=== PATIENT | male | born 1995 | race African-American/Black ===

== ENCOUNTER 2017-08-07 12:17 | Inpatient (IN) | payer OTHER ==
[2017-08-07 13:56] VITALS: BMI 33.0
[2017-08-07] MEDS ORDERED: P-EPHED 60MG/TRIPROLIDI 2.5MG TABLET PO PRN (16:53)
[2017-08-07] MEDS ORDERED: guaiFENesin/D-METHORPHAN HB 10 ML UNIT-DOSE CUPS PO PRN (16:53)
[2017-08-07] MEDS ORDERED: MAGNESIUM CITRATE 300 ML BOTTLE PO PRN (16:53)
[2017-08-07] MEDS ORDERED: IBUPROFEN 400 MG TABLET (FP) PO PRN (16:53)
[2017-08-07] MEDS ORDERED: MAGNESIUM HYDROX 2400MG/30ML ORAL SUSPENSION 30 ML CUP PO PRN (16:53)
[2017-08-07] MEDS ORDERED: NICOTINE POLACRILEX 4 MG GUM BC PRN (16:53)
[2017-08-07] MEDS ORDERED: LOPERAMIDE HCL 2 MG CAPSULE PO PRN (16:53)
[2017-08-07] MEDS ORDERED: MENTHOL/PHENOL 1 EACH UD MM PRN (16:53)
--- NOTE | 2017-08-07 16:53 | HP ---
Admission [facility] Chief Complaint: rehab for marijuana use court mandated Allergies/Adverse Reactions: Allergies Allergy/AdvReac Type Severity Reaction Status Date / Time shellfish derived Allergy Intermediate Swelling Verified 08/07/17 15:47 History of Present Illness: 21 yo m with h/o marijuana use court mandated, no previous teatment episodes. suicide attempt in past 2-15 no si at thsi time, dental caries unrelieved by naprosyn, low back pain Exam Limitations: No Limitations - Ebola screening Have you traveled outside of the country in the last 21 days: No Have you had contact with anyone from an Ebola affected area: No Have you been sick,other than usual withdrawal symptoms: No Do you have a fever: No - Review of Systems Constitutional: No Symptoms Reported EENT: reports: No Symptoms Reported Respiratory: reports: No Symptoms reported Cardiac: reports: No Symptoms Reported GI: reports: No Symptoms Reported : reports: No Symptoms Reported Musculoskeletal: reports: No Symptoms Reported Integumentary: reports: No Symptoms Reported Neuro: reports: No Symptoms reported Endocrine: reports: No Symptoms Reported Hematology: reports: No Symptoms Reported Psychiatric: reports: Judgement Intact, Mood/Affect Appropiate, Orientated x3, Anxious, Depressed Other Systems: Reviewed and Negative Patient History - Patient Medical History Hx Anemia: No Hx Asthma: No Hx Chronic Obstructive Pulmonary Disease (COPD): No Hx Cancer: No Hx Cardiac Disorders: No Hx Congestive Heart Failure: No Hx Hypertension: No Hx Hypercholesterolemia: No Hx Pacemaker: No HX Cerebrovascular Accident: No Hx Seizures: No Hx Dementia: No Hx Diabetes: No Hx Gastrointestinal Disorders: No Hx Liver Disease: No Hx Genitourinary Disorders: No Hx Sexually Transmitted Disorders: No Hx Renal Disease (ESRD): No Hx Thyroid Disease: No Hx Human Immunodeficiency Virus (HIV): No Hx Hepatitis C: No Hx Depression: Yes Hx Suicide Attempt: Yes (2014, no si, cut arms) Hx Bipolar Disorder: No Hx Schizophrenia: No - Patient Surgical History Past Surgical History: No Anesthesia Reaction: No - PPD History Previous Implant?: Yes Documented Results: Negative w/o proof Implanted On Prior [facility] Admission?: No PPD to be Administered?: Yes - Reproductive History Patient is a Female of Child Bearing Age (11 -55 yrs old): No Patient : No - Smoking Cessation Smoking history: Current every day smoker Have you smoked in the past 12 months: Yes Aproximately how many cigarettes per day: 20 Hx Chewing Tobacco Use: No Initiated information on smoking cessation: Yes 'Breaking Loose' booklet given: 08/07/17 - Substance & Tx. History Hx Alcohol Use: Yes (social only ) Hx Substance Use: Yes Substance Use Type: Marijuana Hx Substance Use Treatment: No - Substances Abused Marijuana/Hashish Route: Smoking Frequency: Daily Amount used: $100 Age of first use: 15 Date of Last Use: 08/06/17 Family Disease History - Family Disease History Family Disease History: Other: Grandparent (HTN) Admission Physical Exam [facility] - Vital Signs Vital Signs: Vital Signs - 24 hr 08/07/17 13:52 Temperature 97.8 F Pulse Rate 83 Respiratory 20 Rate Blood Pressure 147/69 - Physical General Appearance: Yes: Within Normal Limits, No Apparent Distress, Nourished, Appropriately Dressed, Obese HEENTM: Yes: Within Normal Limits, Hearing grossly Normal, Normal ENT Inspection , Normocephalic, Normal Voice, ANN, Other (dental caries) Respiratory: Yes: Within Normal Limits, Chest Non-Tender, Lungs Clear, Normal Breath Sounds, No Respiratory Distress, No Accessory Muscle Use Neck: Yes: Within Normal Limits, No masses,lesions,Nodules, Supple, Trachea in good position Breast: Yes: Breast Exam Deferred Cardiology: Yes: Within Normal Limits, Regular Rhythm, Regular Rate, S1, S2 Abdominal: Yes: Normal Bowel Sounds, Non Tender, Flat, Soft, Protuberent, Distended Genitourinary: Yes: Within Normal Limits Back: Yes: Within Normal Limits, Normal Inspection Musculoskeletal: Yes: Within Normal Limits, full range of Motion, Gait Steady, Pelvis Stable Extremities: Yes: Within Normal Limits, Normal Capillary Refill, Normal Inspection, Normal Range of Motion, Non-Tender Neurological: Yes: Within Normal Limits, garment 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 intact, Fully Oriented, Alert, Motor Strength 5/5, Normal Response, Depressed Affect Integumentary: Yes: Within Normal Limits, Normal Color, Dry, Warm Lymphatic: Yes: Within Normal Limits - Diagnostic (1) Cannabis dependence Current Visit: Yes Status: Acute (2) Dental caries Current Visit: Yes Status: Acute (3) Depression Current Visit: Yes Status: Acute (4) Suicide attempt Current Visit: Yes Status: Acute Cleared for Admission [facility] - Detox or Rehab Claeared for Rehab Admission: Yes [facility] Breath Alcohol Content Breath Alcohol Content: 0 Urine Drug Screen - Results Drug Screen Negative: No Urine Drug Screen Results: THC-Marijuana Inpatient Rehab Admission - Initial Determination Are CD services needed?: Yes Free of communicable disease: Yes Not in need of hospitalization: Yes - Rehab Admission Criteria Lacks judgement: Yes Patient is meeting Inpatient Rehab admission criteria:: Yes
[2017-08-07] MEDS: AMOX TR/POT CLAV 500MG/125MG TABLETS (FP) PO SCH (20:38)
[2017-08-07] MEDS: NICOTINE 21 MG/24 HOURS TOPICAL PATCH TD SCH (20:39)
[2017-08-07] MEDS: PANTOPRAZOLE 40 MG TABLET (FP) PO SCH (20:39)
[2017-08-07] MEDS: THIAMINE HCL 100 MG TABLET (FP) PO SCH (22:02)
[2017-08-07] MEDS: NAPROXEN 500 MG TABLET (FP) PO SCH (22:02)
[2017-08-07 23:35] LABS: URINE APPEARANCE CLEAR; URINE BILIRUBIN NEGATIVE (NEGATIVE); URINE BLOOD NEGATIVE (NEGATIVE); URINE COLOR LTYELLOW; URINE GLUCOSE (UA) 1+ (NEGATIVE); URINE KETONE NEGATIVE (NEGATIVE); URINE LEUK ESTERASE NEGATIVE (NEGATIVE); URINE NITRITE NEGATIVE (NEGATIVE); URINE PROTEIN NEGATIVE (NEGATIVE)
[2017-08-08] MEDS: AMOX TR/POT CLAV 500MG/125MG TABLETS (FP) PO SCH ×3 (07:44→18:07)
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
[2017-08-08] MEDS: PANTOPRAZOLE 40 MG TABLET (FP) PO SCH (10:22)
[2017-08-08] MEDS: NICOTINE 21 MG/24 HOURS TOPICAL PATCH TD SCH (10:22)
[2017-08-08] MEDS: PRENATAL VITAMINS W/ FOLIC ACID TABLET (FP) PO SCH (10:22)
[2017-08-08] MEDS: NAPROXEN 500 MG TABLET (FP) PO SCH ×2 (10:22→21:53)
[2017-08-08 10:46] LABS: HEMATOCRIT 45.8 % (35.4-49); HEMOGLOBIN 14.2 GM/dL (11.7-16.9); MCH 21.9 pg (25.7-33.7); MCHC 31.1 g/dl (32.0-35.9); MEAN CELL VOLUME 70.6 fl (80-96); MEAN PLT VOLUME 8.8 fl (7.5-11.1); PLATELET COUNT 228 K/MM3 (134-434); RBC 6.48 M/mm3 (4.00-5.60); RDW 14.5 % (11.9-15.9); WHITE BLOOD COUNT 6.4 K/mm3 (4.0-10.0)
[2017-08-08 10:53] LABS: ALBUMIN 4.1 g/dl (3.4-5.0); BLOOD UREA NITROGEN 10 mg/dL (7-18); CHLORIDE 105 mmol/L (98-107); SGOT/AST 17 U/L (15-37); SGPT/ALT 31 U/L (12-78); SODIUM 142 mmol/L (136-145)
[2017-08-08 10:56] LABS: ALK PHOS 83 U/L (45-117); ANION GAP 9 (8-16); BILIRUBIN,TOTAL 0.6 mg/dL (0.2-1.0); CALCIUM 9.5 mg/dL (8.5-10.1); CO2 28 mmol/L (21-32); CREATININE 0.8 mg/dL (0.7-1.3); GLUCOSE,RANDOM 84 mg/dL (74-106); TOT PROT 7.2 g/dl (6.4-8.2)
[2017-08-08] MEDS: QUEtiapine FUMARATE 50 MG TABLET PO SCH (12:19)
--- NOTE | 2017-08-08 12:35 | EKG ---
Test Reason : Blood Pressure : / mmHG Vent. Rate : 052 BPM Atrial Rate : 052 BPM P-R Int : 134 ms QRS Dur : 098 ms QT Int : 402 ms P-R-T Axes : 054 042 030 degrees QTc Int : 373 ms SINUS BRADYCARDIA WITH SINUS ARRHYTHMIA OTHERWISE NORMAL ECG WHEN COMPARED WITH ECG OF 07-AUG-2017 22:36, QT HAS SHORTENED Confirmed by SURINDER VENEGAS MD ([id number]) on 08/08/2017 12:35:16 PM Referred By: Confirmed By:SURINDER VENEGAS MD
--- NOTE | 2017-08-08 12:36 | EKG ---
Test Reason : Blood Pressure : / mmHG Vent. Rate : 067 BPM Atrial Rate : 067 BPM P-R Int : 136 ms QRS Dur : 100 ms QT Int : 424 ms P-R-T Axes : 053 049 026 degrees QTc Int : 448 ms NORMAL SINUS RHYTHM WITH SINUS ARRHYTHMIA POSSIBLE LEFT ATRIAL ENLARGEMENT LEFT VENTRICULAR HYPERTROPHY ABNORMAL ECG NO PREVIOUS ECGS AVAILABLE Confirmed by SURINDER VENEGAS MD ([id number]) on 08/08/2017 12:35:41 PM Referred By: Confirmed By:SURINDER VENEGAS MD
[2017-08-08 14:12] LABS: SICKLE CELL SCREEN NEGATIVE (NEGATIVE)
[2017-08-08] MEDS: TOLNAFTATE 1% CREAM 15 GM TUBE TP SCH ×2 (14:57→21:54)
[2017-08-08] MEDS: THIAMINE HCL 100 MG TABLET (FP) PO SCH (21:53)
[2017-08-08] MEDS: QUEtiapine FUMARATE 100 MG TABLET (FP) PO SCH (21:53)
[2017-08-09] MEDS: MAG HYDROX/AL HYDROX/SIMETH 30 ML UNIT-DOSE CUP PO PRN (06:28)
[2017-08-09] MEDS: AMOX TR/POT CLAV 500MG/125MG TABLETS (FP) PO SCH ×3 (08:12→17:05)
[2017-08-09] MEDS: NAPROXEN 500 MG TABLET (FP) PO SCH ×2 (09:16→21:22)
[2017-08-09] MEDS: QUEtiapine FUMARATE 50 MG TABLET PO SCH (09:16)
[2017-08-09] MEDS: PRENATAL VITAMINS W/ FOLIC ACID TABLET (FP) PO SCH (09:16)
[2017-08-09] MEDS: PANTOPRAZOLE 40 MG TABLET (FP) PO SCH (09:16)
[2017-08-09] MEDS: NICOTINE 21 MG/24 HOURS TOPICAL PATCH TD SCH (09:19)
[2017-08-09] MEDS: TOLNAFTATE 1% CREAM 15 GM TUBE TP SCH ×2 (09:20→21:21)
[2017-08-09] MEDS: QUEtiapine FUMARATE 100 MG TABLET (FP) PO SCH (21:22)
[2017-08-09] MEDS: THIAMINE HCL 100 MG TABLET (FP) PO SCH (21:22)
[2017-08-10] MEDS: AMOX TR/POT CLAV 500MG/125MG TABLETS (FP) PO SCH ×3 (08:08→17:01)
[2017-08-10] MEDS: NAPROXEN 500 MG TABLET (FP) PO SCH ×2 (09:38→21:48)
[2017-08-10] MEDS: NICOTINE 21 MG/24 HOURS TOPICAL PATCH TD SCH (09:38)
[2017-08-10] MEDS: PANTOPRAZOLE 40 MG TABLET (FP) PO SCH (09:38)
[2017-08-10] MEDS: QUEtiapine FUMARATE 50 MG TABLET PO SCH (09:38)
[2017-08-10] MEDS: PRENATAL VITAMINS W/ FOLIC ACID TABLET (FP) PO SCH (09:38)
[2017-08-10] MEDS: TOLNAFTATE 1% CREAM 15 GM TUBE TP SCH ×2 (09:39→21:47)
[2017-08-10] MEDS: THIAMINE HCL 100 MG TABLET (FP) PO SCH (21:47)
[2017-08-10] MEDS: QUEtiapine FUMARATE 100 MG TABLET (FP) PO SCH (21:47)
[2017-08-11] MEDS: AMOX TR/POT CLAV 500MG/125MG TABLETS (FP) PO SCH ×3 (08:25→16:56)
[2017-08-11] MEDS: PRENATAL VITAMINS W/ FOLIC ACID TABLET (FP) PO SCH (09:33)
[2017-08-11] MEDS: QUEtiapine FUMARATE 50 MG TABLET PO SCH (09:33)
[2017-08-11] MEDS: PANTOPRAZOLE 40 MG TABLET (FP) PO SCH (09:33)
[2017-08-11] MEDS: NAPROXEN 500 MG TABLET (FP) PO SCH ×2 (09:33→21:20)
[2017-08-11] MEDS: NICOTINE 21 MG/24 HOURS TOPICAL PATCH TD SCH (09:34)
[2017-08-11] MEDS: TOLNAFTATE 1% CREAM 15 GM TUBE TP SCH ×2 (10:58→21:20)
[2017-08-11] MEDS: QUEtiapine FUMARATE 100 MG TABLET (FP) PO SCH (21:20)
[2017-08-11] MEDS: THIAMINE HCL 100 MG TABLET (FP) PO SCH (21:20)
[2017-08-12] MEDS: AMOX TR/POT CLAV 500MG/125MG TABLETS (FP) PO SCH ×4 (07:47→17:03)
[2017-08-12] MEDS: NAPROXEN 500 MG TABLET (FP) PO SCH ×2 (09:31→21:45)
[2017-08-12] MEDS: TOLNAFTATE 1% CREAM 15 GM TUBE TP SCH ×2 (09:31→21:44)
[2017-08-12] MEDS: PRENATAL VITAMINS W/ FOLIC ACID TABLET (FP) PO SCH (09:31)
[2017-08-12] MEDS: PANTOPRAZOLE 40 MG TABLET (FP) PO SCH (09:31)
[2017-08-12] MEDS: NICOTINE 21 MG/24 HOURS TOPICAL PATCH TD SCH (09:31)
[2017-08-12] MEDS: QUEtiapine FUMARATE 50 MG TABLET PO SCH (09:31)
[2017-08-12] MEDS: BACITRACIN 0.9 GM PACKET TP SCH (21:44)
[2017-08-12] MEDS: RANITIDINE HCL 150 MG TABLET (FP) PO SCH (21:45)
[2017-08-12] MEDS: QUEtiapine FUMARATE 100 MG TABLET (FP) PO SCH (21:45)
[2017-08-12] MEDS: THIAMINE HCL 100 MG TABLET (FP) PO SCH (21:45)
[2017-08-13] MEDS: AMOX TR/POT CLAV 500MG/125MG TABLETS (FP) PO SCH ×3 (08:05→18:16)
[2017-08-13] MEDS: NAPROXEN 500 MG TABLET (FP) PO SCH ×2 (09:36→21:15)
[2017-08-13] MEDS: BACITRACIN 0.9 GM PACKET TP SCH ×2 (09:36→21:16)
[2017-08-13] MEDS: NICOTINE 21 MG/24 HOURS TOPICAL PATCH TD SCH (09:36)
[2017-08-13] MEDS: QUEtiapine FUMARATE 50 MG TABLET PO SCH (09:36)
[2017-08-13] MEDS: TOLNAFTATE 1% CREAM 15 GM TUBE TP SCH ×2 (09:36→21:16)
[2017-08-13] MEDS: PRENATAL VITAMINS W/ FOLIC ACID TABLET (FP) PO SCH (09:36)
[2017-08-13] MEDS: RANITIDINE HCL 150 MG TABLET (FP) PO SCH ×2 (09:36→21:16)
[2017-08-13] MEDS: QUEtiapine FUMARATE 100 MG TABLET (FP) PO SCH (21:15)
[2017-08-13] MEDS: THIAMINE HCL 100 MG TABLET (FP) PO SCH (21:16)
[2017-08-14] MEDS: AMOX TR/POT CLAV 500MG/125MG TABLETS (FP) PO SCH ×3 (09:00→17:16)
[2017-08-14] MEDS: NAPROXEN 500 MG TABLET (FP) PO SCH ×2 (09:13→21:23)
[2017-08-14] MEDS: QUEtiapine FUMARATE 50 MG TABLET PO SCH (09:13)
[2017-08-14] MEDS: RANITIDINE HCL 150 MG TABLET (FP) PO SCH ×2 (09:13→21:23)
[2017-08-14] MEDS: PRENATAL VITAMINS W/ FOLIC ACID TABLET (FP) PO SCH (09:13)
[2017-08-14] MEDS: NICOTINE 21 MG/24 HOURS TOPICAL PATCH TD SCH (09:14)
[2017-08-14] MEDS: TOLNAFTATE 1% CREAM 15 GM TUBE TP SCH ×2 (09:14→21:23)
[2017-08-14] MEDS: BACITRACIN 0.9 GM PACKET TP SCH ×2 (09:14→21:23)
[2017-08-14] MEDS: QUEtiapine FUMARATE 100 MG TABLET (FP) PO SCH (21:23)
[2017-08-14] MEDS: THIAMINE HCL 100 MG TABLET (FP) PO SCH (21:25)
[2017-08-15] MEDS: AMOX TR/POT CLAV 500MG/125MG TABLETS (FP) PO SCH ×3 (08:15→17:37)
[2017-08-15] MEDS: NICOTINE 21 MG/24 HOURS TOPICAL PATCH TD SCH (09:43)
[2017-08-15] MEDS: TOLNAFTATE 1% CREAM 15 GM TUBE TP SCH ×2 (09:43→21:03)
[2017-08-15] MEDS: BACITRACIN 0.9 GM PACKET TP SCH ×2 (09:43→21:02)
[2017-08-15] MEDS: PRENATAL VITAMINS W/ FOLIC ACID TABLET (FP) PO SCH (09:43)
[2017-08-15] MEDS: RANITIDINE HCL 150 MG TABLET (FP) PO SCH ×2 (09:43→21:05)
[2017-08-15] MEDS: QUEtiapine FUMARATE 50 MG TABLET PO SCH (09:43)
[2017-08-15] MEDS: NAPROXEN 500 MG TABLET (FP) PO SCH ×2 (09:43→21:03)
--- NOTE | 2017-08-15 12:21 | PN ---
[facility] Progress Note Note: co tooth pain, discussed pain mngmnt options and that dds as outpt is best if completion desired
[2017-08-15] MEDS: LIDOCAINE 5% TOPICAL PATCH TP SCH (13:11)
[2017-08-15] MEDS: CYCLOBENZAPRINE HCL 5 MG TABLET PO SCH ×2 (13:11→21:02)
[2017-08-15] MEDS: LIDOCAINE PATCH REMOVAL MC SCH (21:02)
[2017-08-15] MEDS: QUEtiapine FUMARATE 100 MG TABLET (FP) PO SCH (21:03)
[2017-08-15] MEDS: THIAMINE HCL 100 MG TABLET (FP) PO SCH (21:04)
[2017-08-16] MEDS: CYCLOBENZAPRINE HCL 5 MG TABLET PO SCH ×3 (06:45→21:43)
[2017-08-16] MEDS: AMOX TR/POT CLAV 500MG/125MG TABLETS (FP) PO SCH ×3 (07:01→17:03)
[2017-08-16] MEDS: RANITIDINE HCL 150 MG TABLET (FP) PO SCH ×2 (09:59→21:43)
[2017-08-16] MEDS: TOLNAFTATE 1% CREAM 15 GM TUBE TP SCH ×2 (09:59→21:43)
[2017-08-16] MEDS: BACITRACIN 0.9 GM PACKET TP SCH ×2 (09:59→22:07)
[2017-08-16] MEDS: PRENATAL VITAMINS W/ FOLIC ACID TABLET (FP) PO SCH (09:59)
[2017-08-16] MEDS: QUEtiapine FUMARATE 50 MG TABLET PO SCH (09:59)
[2017-08-16] MEDS: NICOTINE 21 MG/24 HOURS TOPICAL PATCH TD SCH (09:59)
[2017-08-16] MEDS: NAPROXEN 500 MG TABLET (FP) PO SCH ×2 (09:59→21:43)
[2017-08-16] MEDS: LIDOCAINE 5% TOPICAL PATCH TP SCH (10:00)
[2017-08-16] MEDS ORDERED: PT OWN MED DRAWER 7, Y5N ONE (14:06)
[2017-08-16] MEDS: QUEtiapine FUMARATE 100 MG TABLET (FP) PO SCH (21:43)
[2017-08-16] MEDS: THIAMINE HCL 100 MG TABLET (FP) PO SCH (21:43)
[2017-08-16] MEDS: LIDOCAINE PATCH REMOVAL MC SCH (22:15)
[2017-08-17] MEDS: CYCLOBENZAPRINE HCL 5 MG TABLET PO SCH ×3 (06:31→21:38)
[2017-08-17] MEDS: AMOX TR/POT CLAV 500MG/125MG TABLETS (FP) PO SCH ×3 (07:02→18:18)
[2017-08-17] MEDS: PRENATAL VITAMINS W/ FOLIC ACID TABLET (FP) PO SCH (09:35)
[2017-08-17] MEDS: BACITRACIN 0.9 GM PACKET TP SCH ×2 (09:35→21:38)
[2017-08-17] MEDS: QUEtiapine FUMARATE 50 MG TABLET PO SCH (09:35)
[2017-08-17] MEDS: RANITIDINE HCL 150 MG TABLET (FP) PO SCH ×2 (09:35→22:31)
[2017-08-17] MEDS: LIDOCAINE 5% TOPICAL PATCH TP SCH (09:35)
[2017-08-17] MEDS: NAPROXEN 500 MG TABLET (FP) PO SCH ×2 (09:35→21:38)
[2017-08-17] MEDS: NICOTINE 21 MG/24 HOURS TOPICAL PATCH TD SCH (09:35)
[2017-08-17] MEDS: TOLNAFTATE 1% CREAM 15 GM TUBE TP SCH ×2 (09:36→21:38)
[2017-08-17] MEDS ORDERED: LIDOCAINE VISCOUS 2% ORAL/TOP 20 ML UNIT-DOSE CUP MM ONE (20:13)
[2017-08-17] MEDS: THIAMINE HCL 100 MG TABLET (FP) PO SCH (21:38)
[2017-08-17] MEDS: QUEtiapine FUMARATE 100 MG TABLET (FP) PO SCH (21:38)
[2017-08-17] MEDS: LIDOCAINE PATCH REMOVAL MC SCH (21:40)
[2017-08-18] MEDS: CYCLOBENZAPRINE HCL 5 MG TABLET PO SCH ×3 (06:38→21:49)
[2017-08-18] MEDS: AMOX TR/POT CLAV 500MG/125MG TABLETS (FP) PO SCH ×3 (07:00→17:31)
[2017-08-18] MEDS: NAPROXEN 500 MG TABLET (FP) PO SCH ×2 (09:26→21:49)
[2017-08-18] MEDS: LIDOCAINE 5% TOPICAL PATCH TP SCH (09:26)
[2017-08-18] MEDS: QUEtiapine FUMARATE 50 MG TABLET PO SCH (09:26)
[2017-08-18] MEDS: NICOTINE 21 MG/24 HOURS TOPICAL PATCH TD SCH (09:26)
[2017-08-18] MEDS: RANITIDINE HCL 150 MG TABLET (FP) PO SCH ×2 (09:26→21:49)
[2017-08-18] MEDS: PRENATAL VITAMINS W/ FOLIC ACID TABLET (FP) PO SCH (09:26)
[2017-08-18] MEDS: TOLNAFTATE 1% CREAM 15 GM TUBE TP SCH ×2 (09:26→22:18)
[2017-08-18] MEDS: BACITRACIN 0.9 GM PACKET TP SCH ×2 (09:26→21:51)
[2017-08-18] MEDS: THIAMINE HCL 100 MG TABLET (FP) PO SCH (21:49)
[2017-08-18] MEDS: QUEtiapine FUMARATE 100 MG TABLET (FP) PO SCH (21:49)
[2017-08-18] MEDS: LIDOCAINE PATCH REMOVAL MC SCH (22:17)
[2017-08-19] MEDS: CYCLOBENZAPRINE HCL 5 MG TABLET PO SCH ×3 (06:00→21:49)
[2017-08-19] MEDS: AMOX TR/POT CLAV 500MG/125MG TABLETS (FP) PO SCH ×3 (07:11→17:04)
[2017-08-19] MEDS: NAPROXEN 500 MG TABLET (FP) PO SCH ×2 (09:43→21:49)
[2017-08-19] MEDS: NICOTINE 21 MG/24 HOURS TOPICAL PATCH TD SCH (09:43)
[2017-08-19] MEDS: QUEtiapine FUMARATE 50 MG TABLET PO SCH (09:43)
[2017-08-19] MEDS: PRENATAL VITAMINS W/ FOLIC ACID TABLET (FP) PO SCH (09:43)
[2017-08-19] MEDS: RANITIDINE HCL 150 MG TABLET (FP) PO SCH ×2 (09:43→21:49)
[2017-08-19] MEDS: BACITRACIN 0.9 GM PACKET TP SCH ×2 (09:43→21:48)
[2017-08-19] MEDS: TOLNAFTATE 1% CREAM 15 GM TUBE TP SCH ×2 (09:43→21:48)
[2017-08-19] MEDS: LIDOCAINE 5% TOPICAL PATCH TP SCH (09:45)
[2017-08-19] MEDS ORDERED: FLU VACCINE QUAD 60 MCG/0.5 ML (MDV 17-18) IM ONE (14:43)
[2017-08-19] MEDS: QUEtiapine FUMARATE 100 MG TABLET (FP) PO SCH (21:49)
[2017-08-19] MEDS: THIAMINE HCL 100 MG TABLET (FP) PO SCH (21:49)
[2017-08-19] MEDS: LIDOCAINE PATCH REMOVAL MC SCH (21:51)
[2017-08-20] MEDS: CYCLOBENZAPRINE HCL 5 MG TABLET PO SCH ×3 (06:33→21:14)
[2017-08-20] MEDS: AMOX TR/POT CLAV 500MG/125MG TABLETS (FP) PO SCH ×3 (07:31→17:02)
[2017-08-20] MEDS: QUEtiapine FUMARATE 50 MG TABLET PO SCH (10:17)
[2017-08-20] MEDS: BACITRACIN 0.9 GM PACKET TP SCH ×2 (10:17→21:14)
[2017-08-20] MEDS: RANITIDINE HCL 150 MG TABLET (FP) PO SCH ×2 (10:17→21:14)
[2017-08-20] MEDS: PRENATAL VITAMINS W/ FOLIC ACID TABLET (FP) PO SCH (10:17)
[2017-08-20] MEDS: NAPROXEN 500 MG TABLET (FP) PO SCH ×2 (10:17→21:14)
[2017-08-20] MEDS: NICOTINE 21 MG/24 HOURS TOPICAL PATCH TD SCH (10:18)
[2017-08-20] MEDS: TOLNAFTATE 1% CREAM 15 GM TUBE TP SCH ×2 (10:19→21:15)
[2017-08-20] MEDS: LIDOCAINE 5% TOPICAL PATCH TP SCH (10:26)
[2017-08-20] MEDS: QUEtiapine FUMARATE 100 MG TABLET (FP) PO SCH (21:14)
[2017-08-20] MEDS: THIAMINE HCL 100 MG TABLET (FP) PO SCH (21:14)
[2017-08-20] MEDS: LIDOCAINE PATCH REMOVAL MC SCH (21:15)
[2017-08-21] MEDS: CYCLOBENZAPRINE HCL 5 MG TABLET PO SCH ×2 (05:59→14:47)
[2017-08-21] MEDS: AMOX TR/POT CLAV 500MG/125MG TABLETS (FP) PO SCH ×3 (07:08→17:24)
[2017-08-21] MEDS: QUEtiapine FUMARATE 50 MG TABLET PO SCH (09:26)
[2017-08-21] MEDS: BACITRACIN 0.9 GM PACKET TP SCH ×2 (09:26→22:12)
[2017-08-21] MEDS: LIDOCAINE 5% TOPICAL PATCH TP SCH (09:27)
[2017-08-21] MEDS: NICOTINE 21 MG/24 HOURS TOPICAL PATCH TD SCH (09:27)
[2017-08-21] MEDS: RANITIDINE HCL 150 MG TABLET (FP) PO SCH ×2 (09:27→21:38)
[2017-08-21] MEDS: PRENATAL VITAMINS W/ FOLIC ACID TABLET (FP) PO SCH (09:27)
[2017-08-21] MEDS: NAPROXEN 500 MG TABLET (FP) PO SCH ×2 (09:27→21:38)
[2017-08-21] MEDS: TOLNAFTATE 1% CREAM 15 GM TUBE TP SCH ×2 (09:29→22:12)
[2017-08-21] MEDS: ACETAMINOPHEN 325 MG TABLET (FP) PO PRN (14:47)
[2017-08-21] MEDS: THIAMINE HCL 100 MG TABLET (FP) PO SCH (21:38)
[2017-08-21] MEDS: QUEtiapine FUMARATE 100 MG TABLET (FP) PO SCH (21:38)
[2017-08-21] MEDS: LIDOCAINE PATCH REMOVAL MC SCH (22:12)
[2017-08-22] MEDS: AMOX TR/POT CLAV 500MG/125MG TABLETS (FP) PO SCH ×3 (07:27→17:54)
[2017-08-22] MEDS: PRENATAL VITAMINS W/ FOLIC ACID TABLET (FP) PO SCH (09:38)
[2017-08-22] MEDS: BACITRACIN 0.9 GM PACKET TP SCH ×2 (09:38→21:30)
[2017-08-22] MEDS: RANITIDINE HCL 150 MG TABLET (FP) PO SCH ×2 (09:38→21:30)
[2017-08-22] MEDS: NICOTINE 21 MG/24 HOURS TOPICAL PATCH TD SCH (09:39)
[2017-08-22] MEDS: TOLNAFTATE 1% CREAM 15 GM TUBE TP SCH ×2 (09:39→21:30)
[2017-08-22] MEDS: QUEtiapine FUMARATE 50 MG TABLET PO SCH (09:39)
[2017-08-22] MEDS: LIDOCAINE 5% TOPICAL PATCH TP SCH (09:40)
[2017-08-22] MEDS: NAPROXEN 500 MG TABLET (FP) PO SCH ×2 (09:40→21:30)
[2017-08-22] MEDS ORDERED: FLU VACCINE QUAD 60 MCG/0.5 ML (MDV 17-18) IM ONE (12:00)
[2017-08-22] MEDS: ACETAMINOPHEN 325 MG TABLET (FP) PO PRN (17:55)
[2017-08-22] MEDS: QUEtiapine FUMARATE 100 MG TABLET (FP) PO SCH (21:30)
[2017-08-22] MEDS: LIDOCAINE PATCH REMOVAL MC SCH (21:30)
[2017-08-22] MEDS: THIAMINE HCL 100 MG TABLET (FP) PO SCH (21:30)
[2017-08-23] MEDS: ACETAMINOPHEN 325 MG TABLET (FP) PO PRN ×3 (06:19→23:20)
[2017-08-23] MEDS: AMOX TR/POT CLAV 500MG/125MG TABLETS (FP) PO SCH ×3 (07:36→17:34)
[2017-08-23] MEDS: PRENATAL VITAMINS W/ FOLIC ACID TABLET (FP) PO SCH (09:33)
[2017-08-23] MEDS: NAPROXEN 500 MG TABLET (FP) PO SCH ×2 (09:33→21:06)
[2017-08-23] MEDS: QUEtiapine FUMARATE 50 MG TABLET PO SCH (09:33)
[2017-08-23] MEDS: TOLNAFTATE 1% CREAM 15 GM TUBE TP SCH ×2 (09:34→21:06)
[2017-08-23] MEDS: LIDOCAINE 5% TOPICAL PATCH TP SCH (09:34)
[2017-08-23] MEDS: RANITIDINE HCL 150 MG TABLET (FP) PO SCH ×2 (09:34→21:06)
[2017-08-23] MEDS: NICOTINE 21 MG/24 HOURS TOPICAL PATCH TD SCH (09:35)
[2017-08-23] MEDS: BACITRACIN 0.9 GM PACKET TP SCH ×2 (09:37→21:06)
[2017-08-23] MEDS ORDERED: CYCLOBENZAPRINE HCL 5 MG TABLET PO PRN (17:52)
[2017-08-23] MEDS: QUEtiapine FUMARATE 100 MG TABLET (FP) PO SCH (21:06)
[2017-08-23] MEDS: LIDOCAINE PATCH REMOVAL MC SCH (21:06)
[2017-08-23] MEDS: THIAMINE HCL 100 MG TABLET (FP) PO SCH (21:07)
[2017-08-23] MEDS: hydrOXYzine PAMOATE 50 MG CAPSULE (FP) PO PRN (23:58)
[2017-08-24] MEDS: AMOX TR/POT CLAV 500MG/125MG TABLETS (FP) PO SCH ×3 (07:53→17:30)
[2017-08-24] MEDS: RANITIDINE HCL 150 MG TABLET (FP) PO SCH ×2 (09:39→21:08)
[2017-08-24] MEDS: QUEtiapine FUMARATE 50 MG TABLET PO SCH (09:39)
[2017-08-24] MEDS: PRENATAL VITAMINS W/ FOLIC ACID TABLET (FP) PO SCH (09:39)
[2017-08-24] MEDS: BACITRACIN 0.9 GM PACKET TP SCH ×2 (09:39→21:08)
[2017-08-24] MEDS: LIDOCAINE 5% TOPICAL PATCH TP SCH (09:39)
[2017-08-24] MEDS: NAPROXEN 500 MG TABLET (FP) PO SCH ×2 (09:39→21:07)
[2017-08-24] MEDS: NICOTINE 21 MG/24 HOURS TOPICAL PATCH TD SCH (09:40)
[2017-08-24] MEDS: TOLNAFTATE 1% CREAM 15 GM TUBE TP SCH ×2 (09:41→21:08)
[2017-08-24] MEDS: ACETAMINOPHEN 325 MG TABLET (FP) PO PRN (13:21)
[2017-08-24] MEDS: THIAMINE HCL 100 MG TABLET (FP) PO SCH (21:07)
[2017-08-24] MEDS: QUEtiapine FUMARATE 100 MG TABLET (FP) PO SCH (21:07)
[2017-08-24] MEDS: hydrOXYzine PAMOATE 50 MG CAPSULE (FP) PO PRN (21:07)
[2017-08-24] MEDS: LIDOCAINE PATCH REMOVAL MC SCH (21:09)
[2017-08-25] MEDS: AMOX TR/POT CLAV 500MG/125MG TABLETS (FP) PO SCH ×3 (07:43→17:52)
[2017-08-25] MEDS: QUEtiapine FUMARATE 50 MG TABLET PO SCH (09:41)
[2017-08-25] MEDS: RANITIDINE HCL 150 MG TABLET (FP) PO SCH ×2 (09:41→21:06)
[2017-08-25] MEDS: BACITRACIN 0.9 GM PACKET TP SCH ×2 (09:41→21:07)
[2017-08-25] MEDS: NAPROXEN 500 MG TABLET (FP) PO SCH ×2 (09:41→21:06)
[2017-08-25] MEDS: PRENATAL VITAMINS W/ FOLIC ACID TABLET (FP) PO SCH (09:41)
[2017-08-25] MEDS: NICOTINE 21 MG/24 HOURS TOPICAL PATCH TD SCH (09:41)
[2017-08-25] MEDS: TOLNAFTATE 1% CREAM 15 GM TUBE TP SCH ×2 (09:42→21:06)
[2017-08-25] MEDS: LIDOCAINE 5% TOPICAL PATCH TP SCH (09:43)
[2017-08-25] MEDS: hydrOXYzine PAMOATE 50 MG CAPSULE (FP) PO PRN (21:06)
[2017-08-25] MEDS: THIAMINE HCL 100 MG TABLET (FP) PO SCH (21:06)
[2017-08-25] MEDS: QUEtiapine FUMARATE 100 MG TABLET (FP) PO SCH (21:06)
[2017-08-25] MEDS: LIDOCAINE PATCH REMOVAL MC SCH (21:07)
[2017-08-25] MEDS: ACETAMINOPHEN 325 MG TABLET (FP) PO PRN (23:44)
[2017-08-26] MEDS: AMOX TR/POT CLAV 500MG/125MG TABLETS (FP) PO SCH ×3 (07:22→17:22)
[2017-08-26] MEDS: NICOTINE 21 MG/24 HOURS TOPICAL PATCH TD SCH (09:33)
[2017-08-26] MEDS: PRENATAL VITAMINS W/ FOLIC ACID TABLET (FP) PO SCH (09:33)
[2017-08-26] MEDS: LIDOCAINE 5% TOPICAL PATCH TP SCH (09:33)
[2017-08-26] MEDS: NAPROXEN 500 MG TABLET (FP) PO SCH ×2 (09:33→21:16)
[2017-08-26] MEDS: BACITRACIN 0.9 GM PACKET TP SCH ×2 (09:33→21:18)
[2017-08-26] MEDS: QUEtiapine FUMARATE 50 MG TABLET PO SCH (09:33)
[2017-08-26] MEDS: RANITIDINE HCL 150 MG TABLET (FP) PO SCH ×2 (09:34→21:16)
[2017-08-26] MEDS: TOLNAFTATE 1% CREAM 15 GM TUBE TP SCH ×2 (09:34→21:15)
[2017-08-26] MEDS: hydrOXYzine PAMOATE 50 MG CAPSULE (FP) PO PRN (21:16)
[2017-08-26] MEDS: QUEtiapine FUMARATE 100 MG TABLET (FP) PO SCH (21:16)
[2017-08-26] MEDS: THIAMINE HCL 100 MG TABLET (FP) PO SCH (21:16)
[2017-08-26] MEDS: LIDOCAINE PATCH REMOVAL MC SCH (21:18)
[2017-08-27] MEDS: AMOX TR/POT CLAV 500MG/125MG TABLETS (FP) PO SCH ×3 (07:29→17:21)
[2017-08-27] MEDS: TOLNAFTATE 1% CREAM 15 GM TUBE TP SCH ×2 (09:37→21:50)
[2017-08-27] MEDS: BACITRACIN 0.9 GM PACKET TP SCH ×2 (09:37→21:50)
[2017-08-27] MEDS: QUEtiapine FUMARATE 50 MG TABLET PO SCH (09:37)
[2017-08-27] MEDS: RANITIDINE HCL 150 MG TABLET (FP) PO SCH ×2 (09:37→21:49)
[2017-08-27] MEDS: NAPROXEN 500 MG TABLET (FP) PO SCH ×2 (09:37→21:49)
[2017-08-27] MEDS: PRENATAL VITAMINS W/ FOLIC ACID TABLET (FP) PO SCH (09:37)
[2017-08-27] MEDS: NICOTINE 21 MG/24 HOURS TOPICAL PATCH TD SCH (09:38)
[2017-08-27] MEDS: LIDOCAINE 5% TOPICAL PATCH TP SCH (09:38)
[2017-08-27] MEDS: ACETAMINOPHEN 325 MG TABLET (FP) PO PRN (14:11)
[2017-08-27] MEDS: QUEtiapine FUMARATE 100 MG TABLET (FP) PO SCH (21:49)
[2017-08-27] MEDS: THIAMINE HCL 100 MG TABLET (FP) PO SCH (21:49)
[2017-08-27] MEDS: hydrOXYzine PAMOATE 50 MG CAPSULE (FP) PO PRN (21:51)
[2017-08-27] MEDS: LIDOCAINE PATCH REMOVAL MC SCH (21:52)
[2017-08-28] MEDS: NAPROXEN 500 MG TABLET (FP) PO SCH (10:32)
[2017-08-28] MEDS: QUEtiapine FUMARATE 50 MG TABLET PO SCH (10:32)
[2017-08-28] MEDS: PRENATAL VITAMINS W/ FOLIC ACID TABLET (FP) PO SCH (10:32)
[2017-08-28] MEDS: BACITRACIN 0.9 GM PACKET TP SCH ×2 (10:32→22:03)
[2017-08-28] MEDS: RANITIDINE HCL 150 MG TABLET (FP) PO SCH (10:33)
[2017-08-28] MEDS: NICOTINE 21 MG/24 HOURS TOPICAL PATCH TD SCH (10:33)
[2017-08-28] MEDS: LIDOCAINE 5% TOPICAL PATCH TP SCH (10:33)
[2017-08-28] MEDS: TOLNAFTATE 1% CREAM 15 GM TUBE TP SCH ×2 (10:34→22:03)
--- NOTE | 2017-08-28 15:53 | PN ---
[facility] Progress Note (SOAP) Subjective: c/o back pain, toothache and acne pain not controlled by curren medications which include naprosyn, patch and flexeril Objective: 08/28/17 16:08 Vital Signs - 24 hr 08/28/17 08/28/17 03:30 06:29 Temperature 97.6 F Pulse Rate 88 Respiratory 18 20 Rate Blood Pressure 130/76 Laboratory Tests 08/07/17 08/08/17 08/08/17 20:57 07:30 07:30 WBC 6.4 RBC 6.48 H Hgb 14.2 Hct 45.8 MCV 70.6 L MCH 21.9 L MCHC 31.1 L RDW 14.5 Plt Count 228 MPV 8.8 Sickle Cell Screen Negative Sodium 142 Potassium 4.0 Chloride 105 Carbon Dioxide 28 Anion Gap 9 BUN 10 Creatinine 0.8 Creat Clearance w eGFR > 60 Random Glucose 84 Calcium 9.5 Total Bilirubin 0.6 AST 17 ALT 31 Alkaline Phosphatase 83 Total Protein 7.2 Albumin 4.1 Urine Color Ltyellow Urine Appearance Clear Urine pH 7.0 Ur Specific [place] 1.019 Urine Protein Negative Urine Glucose (UA) 1+ H Urine Ketones Negative Urine Blood Negative Urine Nitrite Negative Urine Bilirubin Negative Urine Urobilinogen 2.0 Ur Leukocyte Esterase Negative RPR Titer Hepatitis C Antibody HIV 1&2 Antibody Screen HIV P24 Antigen 08/08/17 08/08/17 08/08/17 07:30 07:30 07:45 WBC RBC Hgb Hct MCV MCH MCHC RDW Plt Count MPV Sickle Cell Screen Sodium Potassium Chloride Carbon Dioxide Anion Gap BUN Creatinine Creat Clearance w eGFR Random Glucose Calcium Total Bilirubin AST ALT Alkaline Phosphatase Total Protein Albumin Urine Color Urine Appearance Urine pH Ur Specific [place] Urine Protein Urine Glucose (UA) Urine Ketones Urine Blood Urine Nitrite Urine Bilirubin Urine Urobilinogen Ur Leukocyte Esterase RPR Titer Nonreactive Hepatitis C Antibody <0.1 HIV 1&2 Antibody Screen Negative HIV P24 Antigen Negative labs reviewed with patient, nad, moving unassisted, afeb Assessment: 08/28/17 16:08 d/c naprosyn, flexeril and patch, start elavil at night, neurontin 100mg tid and amoxicillin for toothache, cleocin for acne can titrate neurontin to effect max dose 1200mg tid
[2017-08-28] MEDS: CLINDAMYCIN PHOSPHATE 1% TOPICAL SOLUTION 30 ML BOTTLE TP SCH (17:30)
[2017-08-28] MEDS: GABAPENTIN 100 MG CAPSULE (FP) PO SCH ×2 (18:13→22:03)
[2017-08-28] MEDS: AMOXICILLIN 500 MG CAPSULE (FP) PO SCH ×2 (18:13→22:03)
[2017-08-28] MEDS: BACLOFEN 10 MG TABLET (FP) PO SCH (22:03)
[2017-08-28] MEDS: THIAMINE HCL 100 MG TABLET (FP) PO SCH (22:03)
[2017-08-28] MEDS: QUEtiapine FUMARATE 100 MG TABLET (FP) PO SCH (22:03)
[2017-08-28] MEDS: LIDOCAINE PATCH REMOVAL MC SCH (22:04)
[2017-08-28] MEDS: AMITRIPTYLINE HCL 25 MG TABLET (FP) PO SCH (22:05)
[2017-08-28] MEDS: hydrOXYzine PAMOATE 50 MG CAPSULE (FP) PO PRN (22:07)
[2017-08-29] MEDS: AMOXICILLIN 500 MG CAPSULE (FP) PO SCH ×3 (05:51→21:36)
[2017-08-29] MEDS: BACLOFEN 10 MG TABLET (FP) PO SCH ×3 (05:51→21:36)
[2017-08-29] MEDS: GABAPENTIN 100 MG CAPSULE (FP) PO SCH ×3 (05:51→21:36)
[2017-08-29] MEDS: QUEtiapine FUMARATE 50 MG TABLET PO SCH (10:08)
[2017-08-29] MEDS: BACITRACIN 0.9 GM PACKET TP SCH ×2 (10:08→21:36)
[2017-08-29] MEDS: PRENATAL VITAMINS W/ FOLIC ACID TABLET (FP) PO SCH (10:08)
[2017-08-29] MEDS: CLINDAMYCIN PHOSPHATE 1% TOPICAL SOLUTION 30 ML BOTTLE TP SCH (10:09)
[2017-08-29] MEDS: NICOTINE 21 MG/24 HOURS TOPICAL PATCH TD SCH (10:09)
[2017-08-29] MEDS: TOLNAFTATE 1% CREAM 15 GM TUBE TP SCH ×2 (10:09→21:54)
[2017-08-29] MEDS: AMITRIPTYLINE HCL 25 MG TABLET (FP) PO SCH (21:36)
[2017-08-29] MEDS: QUEtiapine FUMARATE 100 MG TABLET (FP) PO SCH (21:36)
[2017-08-29] MEDS: THIAMINE HCL 100 MG TABLET (FP) PO SCH (21:37)
[2017-08-29] MEDS: hydrOXYzine PAMOATE 50 MG CAPSULE (FP) PO PRN (21:38)
[2017-08-29] MEDS: LIDOCAINE PATCH REMOVAL MC SCH (21:56)
[2017-08-30] MEDS: BACLOFEN 10 MG TABLET (FP) PO SCH ×3 (05:53→21:45)
[2017-08-30] MEDS: AMOXICILLIN 500 MG CAPSULE (FP) PO SCH ×3 (05:53→21:44)
[2017-08-30] MEDS: GABAPENTIN 100 MG CAPSULE (FP) PO SCH ×3 (05:53→21:44)
[2017-08-30] MEDS: NICOTINE 21 MG/24 HOURS TOPICAL PATCH TD SCH (10:18)
[2017-08-30] MEDS: QUEtiapine FUMARATE 50 MG TABLET PO SCH (10:18)
[2017-08-30] MEDS: PRENATAL VITAMINS W/ FOLIC ACID TABLET (FP) PO SCH (10:18)
[2017-08-30] MEDS: BACITRACIN 0.9 GM PACKET TP SCH ×2 (10:18→21:43)
[2017-08-30] MEDS: CLINDAMYCIN PHOSPHATE 1% TOPICAL SOLUTION 30 ML BOTTLE TP SCH (10:19)
[2017-08-30] MEDS ORDERED: PT OWN MED DRAWER 7, Y5N ONE ×3 (10:20→22:26)
[2017-08-30] MEDS: TOLNAFTATE 1% CREAM 15 GM TUBE TP SCH ×2 (10:51→21:48)
[2017-08-30] MEDS: MAG HYDROX/AL HYDROX/SIMETH 30 ML UNIT-DOSE CUP PO PRN ×2 (13:51→21:47)
--- NOTE | 2017-08-30 15:50 | PN ---
[facility] Progress Note (SOAP) Subjective: c/o swollen painful optngue Objective: 08/30/17 15:49 Vital Signs - 24 hr 08/30/17 08/30/17 08/30/17 00:30 03:30 06:48 Temperature 97.5 F L Pulse Rate 82 Respiratory 18 18 18 Rate Blood Pressure 126/78 Laboratory Tests 08/07/17 08/08/17 08/08/17 20:57 07:30 07:30 WBC 6.4 RBC 6.48 H Hgb 14.2 Hct 45.8 MCV 70.6 L MCH 21.9 L MCHC 31.1 L RDW 14.5 Plt Count 228 MPV 8.8 Sickle Cell Screen Negative Sodium 142 Potassium 4.0 Chloride 105 Carbon Dioxide 28 Anion Gap 9 BUN 10 Creatinine 0.8 Creat Clearance w eGFR > 60 Random Glucose 84 Calcium 9.5 Total Bilirubin 0.6 AST 17 ALT 31 Alkaline Phosphatase 83 Total Protein 7.2 Albumin 4.1 Urine Color Ltyellow Urine Appearance Clear Urine pH 7.0 Ur Specific [place] 1.019 Urine Protein Negative Urine Glucose (UA) 1+ H Urine Ketones Negative Urine Blood Negative Urine Nitrite Negative Urine Bilirubin Negative Urine Urobilinogen 2.0 Ur Leukocyte Esterase Negative RPR Titer Hepatitis C Antibody HIV 1&2 Antibody Screen HIV P24 Antigen 08/08/17 08/08/17 08/08/17 07:30 07:30 07:45 WBC RBC Hgb Hct MCV MCH MCHC RDW Plt Count MPV Sickle Cell Screen Sodium Potassium Chloride Carbon Dioxide Anion Gap BUN Creatinine Creat Clearance w eGFR Random Glucose Calcium Total Bilirubin AST ALT Alkaline Phosphatase Total Protein Albumin Urine Color Urine Appearance Urine pH Ur Specific [place] Urine Protein Urine Glucose (UA) Urine Ketones Urine Blood Urine Nitrite Urine Bilirubin Urine Urobilinogen Ur Leukocyte Esterase RPR Titer Nonreactive Hepatitis C Antibody <0.1 HIV 1&2 Antibody Screen Negative HIV P24 Antigen Negative labs reviewed, macrocytosis Assessment: 08/30/17 15:49 magic mouthwash, hydroxyzine tid 50mg ordered change toothpaste recommended
[2017-08-30] MEDS: ACETAMINOPHEN 325 MG TABLET (FP) PO PRN (15:59)
[2017-08-30] MEDS: MAG HYDROX/ALH/SMC/DPHA/LIDO 240 ML MOUTHWASH MM SCH (18:00)
[2017-08-30] MEDS: AMITRIPTYLINE HCL 25 MG TABLET (FP) PO SCH (21:44)
[2017-08-30] MEDS: QUEtiapine FUMARATE 100 MG TABLET (FP) PO SCH (21:45)
[2017-08-30] MEDS: LIDOCAINE PATCH REMOVAL MC SCH (21:45)
[2017-08-30] MEDS: hydrOXYzine HCL 25 MG TABLET (FP) PO PRN (21:46)
[2017-08-30] MEDS: THIAMINE HCL 100 MG TABLET (FP) PO SCH (21:49)
[2017-08-31] MEDS: MAG HYDROX/ALH/SMC/DPHA/LIDO 240 ML MOUTHWASH MM SCH ×5 (00:14→23:56)
[2017-08-31] MEDS: GABAPENTIN 100 MG CAPSULE (FP) PO SCH ×3 (06:22→21:29)
[2017-08-31] MEDS: BACLOFEN 10 MG TABLET (FP) PO SCH ×3 (06:22→21:29)
[2017-08-31] MEDS: AMOXICILLIN 500 MG CAPSULE (FP) PO SCH ×3 (06:22→21:29)
[2017-08-31] MEDS ORDERED: PT OWN MED DRAWER 7, Y5N ONE ×2 (09:10→17:17)
[2017-08-31] MEDS: QUEtiapine FUMARATE 50 MG TABLET PO SCH (10:22)
[2017-08-31] MEDS: BACITRACIN 0.9 GM PACKET TP SCH ×2 (10:22→21:29)
[2017-08-31] MEDS: PRENATAL VITAMINS W/ FOLIC ACID TABLET (FP) PO SCH (10:22)
[2017-08-31] MEDS: CLINDAMYCIN PHOSPHATE 1% TOPICAL SOLUTION 30 ML BOTTLE TP SCH (10:23)
[2017-08-31] MEDS: TOLNAFTATE 1% CREAM 15 GM TUBE TP SCH ×2 (10:23→21:31)
[2017-08-31] MEDS: NICOTINE 21 MG/24 HOURS TOPICAL PATCH TD SCH (10:23)
[2017-08-31] MEDS: AMITRIPTYLINE HCL 25 MG TABLET (FP) PO SCH (21:29)
[2017-08-31] MEDS: THIAMINE HCL 100 MG TABLET (FP) PO SCH (21:29)
[2017-08-31] MEDS: LIDOCAINE PATCH REMOVAL MC SCH (21:30)
[2017-08-31] MEDS: QUEtiapine FUMARATE 100 MG TABLET (FP) PO SCH (21:30)
[2017-08-31] MEDS: hydrOXYzine HCL 25 MG TABLET (FP) PO PRN (21:33)
[2017-09-01] MEDS: BACLOFEN 10 MG TABLET (FP) PO SCH ×3 (06:13→21:17)
[2017-09-01] MEDS: GABAPENTIN 100 MG CAPSULE (FP) PO SCH ×3 (06:13→21:17)
[2017-09-01] MEDS: AMOXICILLIN 500 MG CAPSULE (FP) PO SCH ×3 (06:13→21:17)
[2017-09-01] MEDS: MAG HYDROX/ALH/SMC/DPHA/LIDO 240 ML MOUTHWASH MM SCH ×4 (06:13→23:14)
[2017-09-01] MEDS ORDERED: PT OWN MED DRAWER 7, Y5N ONE (08:57)
[2017-09-01] MEDS: BACITRACIN 0.9 GM PACKET TP SCH ×2 (10:10→21:18)
[2017-09-01] MEDS: CLINDAMYCIN PHOSPHATE 1% TOPICAL SOLUTION 30 ML BOTTLE TP SCH (10:10)
[2017-09-01] MEDS: PRENATAL VITAMINS W/ FOLIC ACID TABLET (FP) PO SCH (10:11)
[2017-09-01] MEDS: QUEtiapine FUMARATE 50 MG TABLET PO SCH (10:11)
[2017-09-01] MEDS: TOLNAFTATE 1% CREAM 15 GM TUBE TP SCH ×2 (10:11→21:16)
[2017-09-01] MEDS: NICOTINE 21 MG/24 HOURS TOPICAL PATCH TD SCH (10:11)
[2017-09-01] MEDS: AMITRIPTYLINE HCL 25 MG TABLET (FP) PO SCH (21:17)
[2017-09-01] MEDS: QUEtiapine FUMARATE 100 MG TABLET (FP) PO SCH (21:17)
[2017-09-01] MEDS: THIAMINE HCL 100 MG TABLET (FP) PO SCH (21:17)
[2017-09-01] MEDS: LIDOCAINE PATCH REMOVAL MC SCH (21:18)
[2017-09-01] MEDS: hydrOXYzine HCL 25 MG TABLET (FP) PO PRN (21:19)
[2017-09-02] MEDS: MAG HYDROX/AL HYDROX/SIMETH 30 ML UNIT-DOSE CUP PO PRN ×2 (03:13→14:04)
[2017-09-02] MEDS: GABAPENTIN 100 MG CAPSULE (FP) PO SCH ×3 (06:25→21:31)
[2017-09-02] MEDS: BACLOFEN 10 MG TABLET (FP) PO SCH ×3 (06:25→21:30)
[2017-09-02] MEDS: MAG HYDROX/ALH/SMC/DPHA/LIDO 240 ML MOUTHWASH MM SCH ×4 (06:25→23:40)
[2017-09-02] MEDS: AMOXICILLIN 500 MG CAPSULE (FP) PO SCH ×3 (06:25→21:31)
[2017-09-02] MEDS: CLINDAMYCIN PHOSPHATE 1% TOPICAL SOLUTION 30 ML BOTTLE TP SCH (10:10)
[2017-09-02] MEDS: BACITRACIN 0.9 GM PACKET TP SCH ×2 (10:12→21:32)
[2017-09-02] MEDS: PRENATAL VITAMINS W/ FOLIC ACID TABLET (FP) PO SCH (10:12)
[2017-09-02] MEDS: QUEtiapine FUMARATE 50 MG TABLET PO SCH (10:12)
[2017-09-02] MEDS: TOLNAFTATE 1% CREAM 15 GM TUBE TP SCH ×2 (10:14→21:33)
[2017-09-02] MEDS: NICOTINE 21 MG/24 HOURS TOPICAL PATCH TD SCH (10:15)
--- NOTE | 2017-09-02 12:19 | PN ---
Psychiatric Progress Note Vital Signs: Vital Signs Period Temp Pulse Resp BP Sys/Conner Pulse Ox Last 24 Hr 97.9 F 78 18-20 129/82 Date of Session: 09/02/16 Chief Complaint:: "Discharge." HPI: Pt. admitted to [facility] for cannabis dependence. ROS: Unremarkable Current Medications: Active Medications Generic Name Dose Route Start Last Admin Trade Name Freq PRN Reason Stop Dose Admin Acetaminophen 650 mg 08/07/17 16:53 08/30/17 15:59 Tylenol - PO 650 mg Q4H PRN Administration FEVER Al Hydroxide/Mg Hydroxide 30 ml 08/07/17 16:53 09/02/17 03:13 Mylanta Oral Suspension - PO 30 ml Q6H PRN Administration DYSPEPSIA Amitriptyline HCl 50 mg 08/28/17 22:00 09/01/17 21:17 Elavil - PO 50 mg HS PERLA Administration Amoxicillin 500 mg 08/28/17 16:00 09/02/17 06:25 Amoxicillin - PO 500 mg TID PERLA Administration Bacitracin 0.9 gm 08/12/17 22:00 09/02/17 10:12 Bacitracin - TP 0.9 gm BID PERLA Administration Baclofen 10 mg 08/28/17 19:00 09/02/17 06:25 Lioresal - PO 10 mg TID PERLA Administration Clindamycin Phosphate 1 applic 08/28/17 17:30 09/02/17 10:10 Cleocin 1% Topical Solution - TP Not Given DAILY PERLA Eucalyptus/Menthol/Phenol/Sorbitol 1 each 08/07/17 16:53 Cepastat Lozenge - MM Q4H PRN SORE THROAT Gabapentin 100 mg 08/28/17 16:00 09/02/17 06:25 Neurontin - PO 100 mg TID PERLA Administration Guaifenesin 10 ml 08/07/17 16:53 Robitussin Dm - PO Q6H PRN COUGH Hydroxyzine HCl 50 mg 08/30/17 15:48 09/01/17 21:19 Atarax - PO 50 mg TID PRN Administration FOR ITCHING Lidocaine/Aluminum/Magnesium/Simeth 5 ml 08/30/17 18:00 09/02/17 06:25 Magic Mouthwash *[facility] Formula* - MM Not Given Q6HPO PERLA Loperamide HCl 4 mg 08/07/17 16:53 Imodium - PO Q6H PRN DIARRHEA Magnesium Citrate 300 ml 08/07/17 16:53 Citroma - PO Q48H PRN CONSTIPATION Magnesium Hydroxide 30 ml 08/07/17 16:53 Milk Of Magnesia - PO DAILY PRN CONSTIPATION Miscellaneous 1 each 08/15/17 22:00 09/01/17 21:18 Lidoderm Patch Removal MC 1 each DAILY@2200 PERLA Administration Nicotine 21 mg 08/07/17 17:00 09/02/17 10:15 Nicoderm Patch - TD Not Given DAILY PERLA Nicotine Polacrilex 4 mg 08/07/17 16:53 08/23/17 16:05 Nicorette Gum - BC 4 mg Q2H PRN Administration NICOTINE REPLACEMENT RX Multivit/Folic Acid/Iron 1 tab 08/08/17 10:00 09/02/17 10:12 Vitamins ([facility]) - PO 1 tab DAILY PERLA Administration Pseudoephedrine/Triprolidine 1 combo 08/07/17 16:53 Actifed - PO TID PRN NASAL CONGESTION Quetiapine Fumarate 50 mg 08/08/17 11:50 09/02/17 10:12 Seroquel - PO 50 mg DAILY PERLA Administration Quetiapine Fumarate 100 mg 08/08/17 22:00 09/01/17 21:17 Seroquel - PO 100 mg HS PERLA Administration Thiamine HCl 100 mg 08/07/17 22:00 09/01/17 21:17 Vitamin B1 - PO 100 mg HS PERLA Administration Tolnaftate 1 applic 08/08/17 12:45 09/02/17 10:14 Tinactin 1% Cream - TP 1 applic BID PERLA Administration Medication(s) Change(s): No Current Side Effect: No Lab tests ordered: No Lab tests reviewed: Yes Provider note:: Pt. will complete this program on 09/03/2017. He has met his treatment goals and will continue to address his issues in outpatient treatment at the [facility] in [place]. He verbalized understanding of the consequences of his addiction and the need to continue positive changes in his lifestyle to maintain abstinence. Patient responded well to seroquel 50mg po daily +seroquel 100mg qhs. Script for 30 day supply for these medications will be transmitted electronically to [facility] pharmacy at [address] [place], [place] [id number]. Pt. is stable for discharge on 09/03/2017. Total face to face time:: 25 Mental Status Exam - Mental Status Exam Alert and Oriented to: Time, Place, Person Cognitive Function: Good Patient Appearance: Well Groomed Mood: Hopeful Affect: Mood Congruent Patient Behavior: Appropriate, Cooperative Speech Pattern: Appropriate Voice Loudness: Normal Thought Process: Goal Oriented Thought Disorder: Not Present Hallucinations: Denies Suicidal Ideation: Denies Homicidal Ideation: Denies Insight/Judgement: Good Sleep: Well Appetite: Good Muscle strength/Tone: Normal Gait/Station: Normal Psychiatric Treatment Plan - Problem List (1) Cannabis dependence Current Visit: Yes Comment: Pt. completed program and is stable for discharge. (2) Nicotine dependence Current Visit: Yes (3) Substance induced mood disorder Current Visit: Yes (4) Substance-induced sleep disorder Current Visit: Yes
[2017-09-02] MEDS: hydrOXYzine HCL 25 MG TABLET (FP) PO PRN ×2 (13:53→21:32)
[2017-09-02] MEDS: AMITRIPTYLINE HCL 25 MG TABLET (FP) PO SCH (21:30)
[2017-09-02] MEDS: THIAMINE HCL 100 MG TABLET (FP) PO SCH (21:30)
[2017-09-02] MEDS: QUEtiapine FUMARATE 100 MG TABLET (FP) PO SCH (21:31)
[2017-09-02] MEDS: LIDOCAINE PATCH REMOVAL MC SCH (21:32)
[2017-09-02] MEDS ORDERED: PT OWN MED DRAWER 7, Y5N ONE (22:18)
[2017-09-03] MEDS: ACETAMINOPHEN 325 MG TABLET (FP) PO PRN (04:52)
[2017-09-03] MEDS: AMOXICILLIN 500 MG CAPSULE (FP) PO SCH (05:54)
[2017-09-03] MEDS: GABAPENTIN 100 MG CAPSULE (FP) PO SCH (05:54)
[2017-09-03] MEDS: BACLOFEN 10 MG TABLET (FP) PO SCH (05:54)
[2017-09-03] MEDS ORDERED: PT OWN MED DRAWER 7, Y5N ONE (05:55)
[2017-09-03] MEDS: MAG HYDROX/ALH/SMC/DPHA/LIDO 240 ML MOUTHWASH MM SCH (05:55)
[2017-09-03] MEDS: PRENATAL VITAMINS W/ FOLIC ACID TABLET (FP) PO SCH (06:38)
[2017-09-03] MEDS: QUEtiapine FUMARATE 50 MG TABLET PO SCH (06:39)
[2017-09-03 07:07] VITALS: BP 120/71; PULSE 84; TEMP 98.4
== END 2017-09-03 07:00 | disposition home or self-care (01) | DRG 772 ==
LOC: YASAS 12:17 → Y3W 19:19
PROVIDERS: ADMIT Psychiatry & Neurology Psychiatry; ATTEND Psychiatry & Neurology Psychiatry
PROC: HZ42ZZZ Group Counseling for Substance Abuse Treatment, Cognitive-Behavioral (ICD-10-PCS; principal; 2017-08-07)
DX: F12.20 Cannabis dependence, uncomplicated (principal); F17.210 Nicotine dependence, cigarettes, uncomplicated; F19.24 Other psychoactive substance dependence with psychoactive substance-induced mood disorder; F19.282 Other psychoactive substance dependence with psychoactive substance-induced sleep disorder; F32.9 Major depressive disorder, single episode, unspecified; D75.89 Other specified diseases of blood and blood-forming organs; K02.9 Dental caries, unspecified; M54.5 Low back pain; G89.29 Other chronic pain; K14.8 Other diseases of tongue; F63.9 Impulse disorder, unspecified; K21.9 Gastro-esophageal reflux disease without esophagitis; E66.9 Obesity, unspecified; Z68.33 Body mass index [BMI] 33.0-33.9, adult; Z91.013 Allergy to seafood; Z91.5 Personal history of self-harm
CPT/HCPCS: 36415; 80053; 81003; 85027; 85660; 86593; 86803; 87389; 90688; 93005; 93010; J0475